=== PATIENT | female | born 1975 | race Caucasian/White ===

== ENCOUNTER 2019-08-02 11:29 | Emergency (ER) | payer BC ==
[~2019-08-02] VITALS: Ht 170.2 cm; Wt 68.0 kg
[2019-08-02] MEDS ORDERED: MELOXICAM15 MG PO (11:43)
[2019-08-02] MEDS ORDERED: NORCO 7.5-3251 EACH PO (12:52)
== END 2019-08-02 13:05 | disposition home or self-care (01) ==
LOC: ED 11:29
DX: S30.0XXA Contusion of lower back and pelvis, initial encounter (principal); K21.9 Gastro-esophageal reflux disease without esophagitis; Z79.899 Other long term (current) drug therapy; Z88.8 Allergy status to other drugs, medicaments and biological substances; W18.30XA Fall on same level, unspecified, initial encounter
CPT/HCPCS: 72170; 99283-25; A9270

== ENCOUNTER 2019-12-26 07:55 | Day surgery (SDC) | payer BC, OTHER ==
[~2019-12-26] VITALS: Ht 170.2 cm; Wt 68.0 kg
[~2019-12-26 07:55] MED LIST: ADDERALL 5 MG TA5 MG PO; CALCIUM MAGNES1 EAC2 PO; ESOMEPRAZOLE MA40 MG PO; ESTRACE0.5 MG PO; K-TAB ER20 MEQ PO; MELOXICAM15 MG PO; NORCO 7.5-3251 EACH PO; OMEPRAZOLE20 MG PO; PROTONIX20 MG PO; VITAMIN C1000 MG PO
--- NOTE | 2019-12-26 10:27 | NUR ---
12/26/19 1027 Sheets,Dixie 1018 PT ARRIVED TO PACU ON 10L VIA MASK, PT REPORTS MINIMAL PAIN /. VSS. 4 LAP SITES TO ABD. RESP EVEN AND UNLABORED. 1024 O2 REMOVED, O2 SAT 100%.
[2019-12-26] MEDS ORDERED: TYLENOL EXTRA500 MG PO (10:39)
[2019-12-26] MEDS ORDERED: PERCOCET 7.5-31 EACH PO (10:40)
[2019-12-26] MEDS ORDERED: MOTRIN IB200 M1 PO (10:40)
--- NOTE | 2019-12-26 11:55 | NUR ---
DENIES NAUSEA AFTER EATING CRACKERS OR JELLO. MEDICATED FOR MILD PAIN PER EMAR. STEADY ON FEET WITH ONE PERSON STAND BY ASSIST. AMBULATES TO BR FOR UNMEASURED URINE. REVIEWED DISCHARGE INSTRUCTIONS WITH PT AND SPOUSE AT BEDSIDE. RX AND DISCHARGE INSTRUCTIONS GIVEN TO PT.
--- NOTE | 2019-12-27 16:02 | OR ---
[facility] [address], [place] [address] Signed DATE OF OPERATION: 12/26/2019 SURGEON: Harsh Marr MD PREOPERATIVE DIAGNOSIS: Chronic acalculous cholecystitis. POSTOPERATIVE DIAGNOSIS: Chronic acalculous cholecystitis. PROCEDURE: Laparoscopic cholecystectomy with intraoperative cholangiogram. ANESTHESIA: General endotracheal; Harsh Steele CRNA and local 20 mL of 0.25% Marcaine with epinephrine. 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 She has had chronic recurrent right upper abdominal pain as well as radiation of pain to the right subscapular area. Gallbladder ultrasound was performed showing no sign of stones and she had a CCK HIDA test which was performed showing an ejection fraction of 70% with marked reproduction of her symptoms include right subcostal and right subscapular pain. She is considered likely to have acalculous cholecystitis on that basis. She is admitted at this time to undergo cholecystectomy preferred by laparoscopic approach. She understands the risks of bleeding, infection, bile duct injury, need for open procedure and most importantly failure to cure her symptoms. She understands the risks and she wished to proceed. FINDINGS: The gallbladder clinically appeared chronically inflamed. Cholangiogram was normal. The liver was entirely normal. The gallbladder once excised showed no sign of stones in the gallbladder, but chronic inflammatory change in the mucosa. There were no other findings of concern. DESCRIPTION OF PROCEDURE: The patient was brought to the operating room, given a general endotracheal anesthetic. Preoperative antibiotic Ancef was given and sequential compression device stockings used. Heparin was subcutaneously administered. The abdomen was prepared with a chlorhexidine solution after satisfactory anesthesia and draped sterilely. An Electronically Signed By: HARSH MARR MD 12/27/19 1602 PATIENT NAME: JOSSIE DOMINGUEZ OPERATIVE REPORT DATE OF : 71 REPORT #: [id number] PHYSICIAN: HARSH MARR MD PCP: GRANT BRAGA REPORT IS CONFIDENTIAL AND NOT TO BE RELEASED WITHOUT AUTHORIZATION [facility] [address], [place] [address] Signed infraumbilical incision was made using an open Arley cannula technique, pneumoperitoneum was achieved to a level of 14 mmHg of carbon dioxide gas. Intraabdominal inspection showed no sign of ascites or carcinomatosis. The liver appeared normal. The gallbladder was partially seen and appeared to be chronically inflamed. There was no sign of acute inflammation. Inspection in the lower abdomen showed no visualization of pelvic organs. The right colon appeared normal. Three additional trocars were placed in usual configuration in the subxiphoid right midclavicular, and right anterior axillary line. The gallbladder was elevated cephalad and retracted laterally. Due to her thin body habitus, good visualization of the structures were noted. Using meticulous care and dissection using a hook cautery device, the cystic duct was dissected free identifying well the anatomy. The critical view of safety was maintained. A clip was applied across gallbladder cystic duct junction and a transverse choledochotomy made in the cystic duct. Retrograde milking of the duct showed clear bile. Using the Rowe type cholangiocatheter system, intraoperative cholangiography was undertaken showing free flow of contrast in the biliary tree with prompt emptying into the duodenum. There was a small amount of spillage at the insertion site of the cystic duct, but the proximal biliary tree was normal otherwise. The catheter was removed. The cystic duct was triply clipped and divided. The gallbladder dissected free in a retrograde fashion using electrocautery. The gallbladder was extracted through the infraumbilical port site, opened on the back table and found to have chronic inflammatory change with no sign of stone. Irrigation was undertaken. The subhepatic space there was no sign of bile leak, bleeding or other problems. Excess irrigation fluid was suctioned free. The trocars removed under direct visualization showing no bleeding. The infraumbilical fascial incision was reapproximated with interrupted 0 Vicryl suture had a running 0 PDS suture as well. A 20 mL of 0.25% Marcaine with epinephrine was injected locally in the incision sites. The skin was closed with interrupted 3-0 Vicryl. Steri-Strips were applied. The patient allowed to emerge from anesthesia, ultimately extubated and transferred to recovery room in good condition having suffered no complications. Sponge, needle, and instrument counts reported as correct x3. Harsh Marr MD JM/MODL /[id number] Electronically Signed By: HARSH MARR MD 12/27/19 1602 PATIENT NAME: JOSSIE DOMINGUZE OPERATIVE REPORT DATE OF : 71 REPORT #: [id number] PHYSICIAN: HARSH MARR MD PCP: GRANT BRAGA REPORT IS CONFIDENTIAL AND NOT TO BE RELEASED WITHOUT AUTHORIZATION [address] [address] Signed cc: EDWARD Meyer Copies: GRANT BRAGA ~ Electronically Signed By: HARSH MARR MD 12/27/19 1602 PATIENT NAME: ALBERTOJOSSIE ROBERT OPERATIVE REPORT DATE OF : 71 REPORT #: [id number] PHYSICIAN: HARSH MARR MD PCP: GRANT BRAGA REPORT IS CONFIDENTIAL AND NOT TO BE RELEASED WITHOUT AUTHORIZATION
--- NOTE | 2019-12-28 17:49 | PATH ---
[facility] [address] [place], [place] [address] Signed SPECIMEN(S): A GALLBLADDER SPECIMEN SOURCE: A. GALLBLADDER CLINICAL HISTORY: Chronic cholecystitis. FINAL PATHOLOGIC DIAGNOSIS: Gallbladder, cholecystectomy: - Chronic cholecystitis. BRP:cml:C2NR MICROSCOPIC EXAMINATION: Histologic sections of all submitted blocks are examined by light microscopy. These findings, together with the gross examination, support the pathologic diagnosis. GROSS DESCRIPTION: The specimen, labeled "KS," is received in formalin and consists of Specimen: Previously opened gallbladder. Dimensions: 6.1 x 3.6 x 1.0 cm. Serosa: Green-tracy and smooth. Cystic Duct: Unobstructed. Calculi: Not grossly identified. Mucosa: Green-tracy and velvety. Wall thickness: 0.4 cm. Lymph node: No pericystic lymph nodes are grossly identified. Additional: None. Joist Setter sections are submitted in cassette (A1). AC (under the direct supervision of a pathologist) The Gross Description was prepared using a voice recognition system. The report was reviewed for accuracy; however, sound-alike word errors, addition and/or deletions may occur. If there is any question about this report, please contact Client Services. PERFORMING LABORATORY: The technical component was performed by [employer], [address] [place] [id number] (Car Dumper: Nicolasa Kidd MD; CLIA# [id number]). Professional interpretation was performed by [facility], [facility], [address] [facility], PATIENT NAME: JOSSIE DOMINGUEZ PATHOLOGY DATE OF : 71 REPORT #: [id number] PHYSICIAN: [facility] PCP: GRANT BRAGA REPORT IS CONFIDENTIAL AND NOT TO BE RELEASED WITHOUT AUTHORIZATION [facility] [address] [place] [address] Signed [place] [address] (CLIA# [id number]). Diagnostician: Huang Lewis MD Pathologist Electronically Signed 12/28/2019 Copies: ~ PATIENT NAME: JOSSIE DOMINGUEZ PATHOLOGY DATE OF : 71 REPORT #: [id number] PHYSICIAN: [facility] PCP: GRANT BRAGA REPORT IS CONFIDENTIAL AND NOT TO BE RELEASED WITHOUT AUTHORIZATION
== END 2019-12-26 12:08 | disposition home or self-care (01) ==
LOC: DS 07:55
PROVIDERS: ATTEND Surgery
PROC: BF13YZZ Fluoroscopy of Gallbladder and Bile Ducts using Other Contrast (ICD-10-PCS; 2019-12-26)
PROC: 0FT44ZZ Resection of Gallbladder, Percutaneous Endoscopic Approach (ICD-10-PCS; principal; 2019-12-26 08:45)
DX: K81.1 Chronic cholecystitis (principal); K21.00 Gastro-esophageal reflux disease with esophagitis, without bleeding; Z79.899 Other long term (current) drug therapy; Z97.5 Presence of (intrauterine) contraceptive device
CPT/HCPCS: 00790; 74300; A9270; J0330; J0690; J1100; J1644; J1885; J2250; J2270; J2405; J2704; J2765; J3010; J7121; Q9967

== ENCOUNTER 2020-02-27 05:40 | Day surgery (SDC) | payer BC ==
[~2020-02-27] VITALS: Ht 170.2 cm; Wt 68.2 kg
[~2020-02-27 05:40] MED LIST changes: -K-TAB ER20 MEQ PO; +MOTRIN IB200 M1 PO; +PERCOCET 7.5-31 EACH PO; +POTASSIUM GLUCO99 MG PO; +TYLENOL EXTRA500 MG PO
--- NOTE | 2020-02-27 09:55 | NUR ---
02/27/20 0955 Dixie Pelayo 0949 PT ARRIVED TO PACU ON RA AND DRWOSY. PT WAKES AND DENIES PAIN. SPINAL T-11. VSS.
--- NOTE | 2020-02-27 10:45 | NUR ---
PT ARRIVED FROM PACU VIA STRETCHER THIS AM. PT HAS A PIERRE AND VAGINAL PACKING WITH NO NOTED DRAINAGE AT THIS TIME. PT STATES THAT SHE IS REGAINING FEELING IN HER LEGS BUT SHE STATES THAT HER BUM IS STILL NUMB. PT STATES THAT SHE IS ITCHY BUT NO NEED FOR MEDS AT THIS TIME, PT ALSO DENIES NEED FOR PAIN MEDS OR NAUSEA MEDS AT THIS TIME
--- NOTE | 2020-02-27 11:50 | NUR ---
THIS RN IN PTS ROOM TO DO PTS #2 POST OPP CHECK. PT STATES SHE FEELS DROWSY BUT WAKES EASILY TO NAME. PT STATES THAT HER PAIN IS 4/10 BUT DENIES THE NEED FOR MORPHINE IV AT THIS TIME, PT STATES THAT SHE HAS NO NAUSEA, NO DRAINAGE NOTED. PT STATES THAT SHE CAN FEEL THE PACKING AND THE CATHETER AT THIS TIME, NUMBNESS IS RESOLVING.
--- NOTE | 2020-02-27 12:15 | NUR ---
MED REC COMPLETE
--- NOTE | 2020-02-27 12:31 | NUR ---
THIS RN IN PTS ROOM PER PT REQUEST TO PROVIDE PT WITH 2MG OF MORPHINE. THIS RN ALSO PROVIDED PT WITH A HEAT PACK FOR COMFORT. PT STATES THAT THE PAIN MEDS ARE WORKING AND SHE IS FEELING BETTER. NO DRAINAGE NOTED FROM PAKING AREA.
--- NOTE | 2020-02-27 13:23 | NUR ---
PATIENT SITTING UP IN BED. IN ROOM. VITAL SIGNS DONE BY RN. I&O DONE. CALL LIGHT WITHIN REACH. NO OTHER NEEDS AT THIS TIME
--- NOTE | 2020-02-27 13:32 | NUR ---
PT ALERT, ORIENTED AND SUPPORTED BY HER DANIELE. PT IS ON M/S FOR OBSER- VATION FOLLOWING SURGERY. STAYED A MOMENT, GAVE Lamar PAYNEPOST AND HAD PRAYER WITH PT. WILL CONTINUE TO FOLLOW NEEDED
--- NOTE | 2020-02-27 13:45 | NUR ---
THIS RN IN PTS ROOM TO DO LAST POST OPP CHECK. PT STATED THAT SHE HAD SOME SCANT TO SMALL AMOUNT OF VAGINAL BLEEDING THAT SHE WAS ABLE TO WIPE UP. THIS RN PROVIDED PT WITH A ROSEANN PAD TO ALLOW FOR EASE TO KNOW OF AMOUNT OF VAGINAL DISCHARGE
--- NOTE | 2020-02-27 16:02 | NUR ---
CALL LIGHT ANSWERED. PATIENT ASKS FOR ICE WATER AND ICE PACK. ICE WATER AND ICE PACK PROVIDED. PATIENT ASKS FOR PAIN MEDICATION. RN NOTIFIED. CALL LIGHT WITHIN REACH. NO OTHER NEEDS AT THIS TIME
--- NOTE | 2020-02-27 16:15 | NUR ---
this rn called kristin knutson to ask if pt was okay to take percocet. kristin knutson stated pt was okay to take the med
--- NOTE | 2020-02-27 17:45 | NUR ---
PATIENT SITTING UP IN BED. IN ROOM. VITAL SIGNS AND I&O DONE. CALL LIGHT WITHIN REACH. NO OTHER NEEDS AT THIS TIME
--- NOTE | 2020-02-27 18:11 | NUR ---
THIS RN IN PTS ROOM TO CHECK ON PT. PT STATED THAT THE MOTRIN AND PERCOCET ARE WORKING WELL AND THE ROSEANN PAD ONLY HAS A SCANT AMOUNT OF VAGINAL DISCHARGE IN IT
--- NOTE | 2020-02-27 19:30 | NUR ---
SHIFT REPORT RECEIVED FROM NIKKI GU. PT RESTING IN BED, DENIES NEED FOR PAIN MANAGEMENT AT THIS TIME. IV FLUIDS INFUSING PER ORDER. GABBY WNL. NO OTHER NEEDS AT THIS TIME. CALL LIGHT IN REACH.
--- NOTE | 2020-02-27 20:49 | NUR ---
ASSESSMENT, VS AND I&O COMPLETED. IV WNL, CDI, FLUSHED WELL. GCS 15, A&O X4. LUNGS CLEAR, HEART TOMES REGULAR. ABD SOFT, NONTENDER, PT STATES NORMAL. BOWEL TONES ACTIVE. SCANT BLOOD ON PAD, PACKING IN PLACE. PIERRE WNL. CMS INTACT. PT HAS A "PRESSURE" PAIN FROM PACKING OF 4/10, DENIES NEED FOR PAIN INTERVENTION AT THIS TIME. CALL LIGHT IN REACH.
--- NOTE | 2020-02-28 | NUR ---
PT RESTING IN BED, EYES CLOSED. RR EVEN, UNLABORED. CALL LIGHT IN REACH.
--- NOTE | 2020-02-28 02:00 | NUR ---
PT COMPLAINS OF 7/10 VAGINAL PAIN. PRN PAIN MEDS PROVIDED. ASSESSMENT COMPLETED. SCANT BRIGHT RED BLOOD ON PAD. ABD SOFT, NONTENDER, PT STATES NORMAL. IV WNL. PIERRE WNL. CMS INTACT. ICE PACK, VS AND I&O PROVIDED BY TROY MAGANA. NO OTHER NEEDS AT THIS TIME. CALL LIGHT IN REACH.
--- NOTE | 2020-02-28 04:00 | NUR ---
PT RESTING IN BED, EYES CLOSED. RR EVEN, UNLABORED. CALL LIGHT IN REACH.
--- NOTE | 2020-02-28 06:20 | NUR ---
PIERRE AND PACKING REMOVED WITHIN LIMITS. PT UP TO VOID. SMALL, UNMEASURED VOID WITH BRIGHT RED BLOOD. SMALL AMOUNT OF BLOOD. AREA CLEANED, ICE PACK PROVIDED. PRN PAIN MED PROVIDED FOR 5/10 VAGINAL PAIN. NO OTHER NEEDS AT THIS TIME. CALL LIGHT IN REACH.
--- NOTE | 2020-02-28 06:34 | NUR ---
PT SLEPT WELL LAST NIGHT. PAIN MANAGED WITH PRN PAIN MEDS. TOLERATED DIET WELL, NO NAUSEA. UOS, VSS. PIERRE AND PACKING PULLED WNL, SMALL AMOUNT OF BRIGHT RED BLOOD. PT INDEPENDENT IN ROOM AT THIS TIME. PT GOT UP TO USE BR, SMALL VOID, TOLERATED WELL. IV WNL, FLUSHED WELL. ABD SOFT, NONTENDER, PT DENIES BLOATING, BOWEL TONES ACTIVE.
--- NOTE | 2020-02-28 08:00 | NUR ---
pt awake in bed, up eating breakfast. Simethicone given for gas pains, rates pain 4/10 at rest. Was given percocet prior to shift change. Voiding adequately. No further needs call light in reach.
--- NOTE | 2020-02-28 08:50 | NUR ---
Spoke with Anna. She plans on dc today. Spouse is off work and will be staying home with her. She denies any needs for dc. She has been walking in room and voided after catheter was removed. Plans on dc when Dr. morgan.
--- NOTE | 2020-02-28 09:31 | NUR ---
PATIENT AWAKE IN BED, VITALS AND I&OS CHARTED. ICE PACK PROVIDED, PER PATIENT REQUEST. CALL LIGHT IN REACH
--- NOTE | 2020-02-28 11:17 | NUR ---
CALLED FOR CLARIFICATION ON HOME MEDCIATION MEDICATION RECONCILIATION FOR DISCHARGE.
[2020-02-28] MEDS ORDERED: PERCOCET 5-3251 EACH PO (11:37)
[2020-02-28] MEDS ORDERED: IBUPROFEN800 MG PO (11:38)
--- NOTE | 2020-02-28 13:42 | OR ---
[address] [address] Signed DATE OF OPERATION: 02/27/2020 SURGEON: Isaak Cross MD PREOPERATIVE DIAGNOSIS: Uterovaginal prolapse, incomplete. POSTOPERATIVE DIAGNOSIS: Uterovaginal prolapse, incomplete. PROCEDURE: Vaginal hysterectomy with anterior-posterior repair and cystoscopy. ASSISTANTS: 1. Jorge Cortez DO. 2. Nette Dc DO. ANESTHESIA: Spinal with IV sedation. ESTIMATED BLOOD LOSS: 100 mL. SPECIMEN: Uterus. DRAINS: Martinez to bladder. PACKING: Premarin soaked gauze in vagina. FINDINGS: Slightly wide introitus with thin perineal body with grade 2 cystocele, grade 2 rectocele with thin rectovaginal septum. 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 DESCRIPTION: The patient was brought to the operating room and placed in supine position. After adequate general Electronically Signed By: ISAAK CROSS MD 02/28/20 1342 PATIENT NAME: JOSSIE DOMINGUEZ OPERATIVE REPORT DATE OF : 71 REPORT #: [id number] PHYSICIAN: ISAAK CROSS MD PCP: GRANT BRAGA REPORT IS CONFIDENTIAL AND NOT TO BE RELEASED WITHOUT AUTHORIZATION [address] [address] Signed anesthesia was obtained, she was placed in dorsal lithotomy position, prepped and draped in the usual sterile fashion. Martinez catheter was placed in the bladder. A weighted speculum was placed in the vagina and the posterior lip of the cervix was grasped with an Allis clamp. The cervix was moved back and forth to identify the reflection of the posterior vagina off the cervix and a posterior colpotomy was made using curved scissors. Finger was placed in the posterior cul-de-sac to make sure there was no bowell or or adhesions present. [place] neck speculum replaced the weighted speculum and placed in the posterior cul-de-sac. The uterosacral ligaments were clamped on each side using curved Ashok clamps, and these pedicles were cut with scissors and stick-tied with 0-Vicryl suture. The scalp was then used to circumscribe the vaginal mucosa just around the cervix from one pedicle to the other anteriorly, and the anterior vaginal mucosa bluntly pushed back. The anterior peritoneum was not identified at this point, so additional clamp was placed on each side against the cervix using curved Ashok clamp. Each pedicle was clamped, cut with scissors and then stick-tied with 0-Vicryl suture. The anterior cul-de-sac was then pushed back further. The anterior peritoneum identified and nicked with curved scissors and a finger placed into the anterior cul-de-sac to make sure there were no bowel or pelvic structures present. A [place] was placed through the anterior cul-de-sac. The remaining pedicles incorporated the anterior and posterior peritoneum. Curved Ashok clamps were clamped on either side up the side of the uterus and against the uterus clamping with curved Ashok cutting with scissors and stick tying with 0-Vicryl suture. Final upper pedicles were clamped on either side using curved Ashok clamp incorporating the round ligament and the fallopian tube. These pedicles were clamped and cut, removing the uterus and cervix. Each upper pedicle was free tied and stick-tied with 0-Vicryl suture. Both suture lines were carefully examined. A small amount of bleeding was noted in the midportion. This was controlled with extra [id number] stitch of 0-Vicryl suture. When good hemostasis was obtained, the anterior and posterior peritoneum was identified and a pursestring stitch of 2-0 Vicryl suture used to close the peritoneum with a finger placed in the closure as it was closed to make sure there was no pelvic structures caught within the peritoneal closure. The vaginal mucosa was then closed using a running locking stitch of 0-Vicryl suture starting at one side and across to the other side. The upper and lower pedicle sutures were then cut. Good hemostasis was noted. The anterior vaginal mucosa was grasped with two Allis clamps in the midline, one at the urethralvesical junction, the other one at the distal end of the cystocele. A scalpel was used to cut the vaginal mucosa along the midline between the two Allis clamps and Metzenbaum scissors used to undermine the vaginal mucosa and separate the paravesical tissue from the vaginal mucosa on each side. When the cystocele was isolated, a pursestring stitch of Electronically Signed By: ISAAK CROSS MD 02/28/20 1342 PATIENT NAME: JOSSIE DOMINGUEZ OPERATIVE REPORT DATE OF : 71 REPORT #: [id number] PHYSICIAN: ISAAK CROSS MD PCP: GRANT BRAGA REPORT IS CONFIDENTIAL AND NOT TO BE RELEASED WITHOUT AUTHORIZATION [address] [address] Signed 2-0 Vicryl suture was used to close and elevate the cystocele. The vaginal mucosa was then trimmed on either side and a running locking stitch of 3-0 Vicryl suture used to close the vaginal mucosa. This did seem to elevate the bladder and resolve the cystocele. Cystoscopy was then performed. The Martinez catheter was removed from the bladder and a 70-degree cystoscope placed in the bladder under direct visualization. Sterile water was used as distending medium. The entire bladder was inspected. No defects and no puckering were noted. Both ureteral orifices were seen and showed good jets of urine from fluorescein dye that had been previously injected by IV. There were no holes or defects noted. The cystoscope was removed. The bladder drained and the Martinez catheter placed back in the bladder. The rectocele repair was then started by digital rectal exam identifying the thin rectovaginal tissue and the thin perineal body. The vaginal mucosa just at the upper edge of the rectocele was grasped with a curved Miryea clamp in the midline, and then a scalpel used to remove a triangular piece of perineal skin. Allis clamps were used to grasp both sides of the perineal opening posteriorly and the incision made between the Allis clamps and then down to the midline approximately nursing home towards the rectum. The perineal skin was removed using the scalpel. Metzenbaum scissors were then used to undermine the vaginal mucosa and opened the vaginal mucosa along the midline. As this was done, Allis clamps were used to grasp the vaginal mucosa on either side. After reaching the upper Imreya clamp, the vaginal mucosa on either side was bluntly and sharply taken down with Metzenbaum scissors and gauze after the rectocele was isolated. Horizontal mattress stitches of 0-Vicryl suture were used in a horizontal mattress stitch fashion to close and strengthen the thin rectovaginal tissue, this was started distally and the stitches brought out to the vaginal opening. A finger dissection was then used to check the rectum and no stitches were noted to be in the rectum and the rectocele seemed well fixed. The vaginal mucosa was then trimmed and a running locking stitch of 3-0 Vicryl suture used to close the vaginal mucosa nursing home to the opening. FloSeal was inserted into the space between the rectovaginal tissue and the vagina to help with hemostasis. The vagina was closed the rest away to the opening and then interrupted stitches of 0-Vicryl suture were used to reinforce the perineal body. The 3-0 Vicryl suture was then continued down the perineal body, this was a subcutaneous stitch and then after reaching the apex, the perineal skin was closed in a subcuticular fashion back up to the vaginal opening. There was small amount of bleeding along this edge and was controlled with two extra sljwtk-ov-djeaa stitches of 3-0 Vicryl suture and good hemostasis was obtained. Sponge stick was placed in the vagina and good hemostasis noted there. The vaginal opening had good length and good two fingerbreadth with better support anterior and posteriorly, and the cuff also seemed elevated, so at this time the vagina was packed with Premarin soaked gauze. The Martinez catheter left in place. The Electronically Signed By: ISAAK CROSS MD 02/28/20 1342 PATIENT NAME: JOSSIE DOMINGUEZ OPERATIVE REPORT DATE OF : 71 REPORT #: [id number] PHYSICIAN: ISAAK CROSS MD PCP: GRANT BRAGA REPORT IS CONFIDENTIAL AND NOT TO BE RELEASED WITHOUT AUTHORIZATION [facility] [address] [place] [address] Signed patient tolerated the procedure well, went to the recovery room in good condition. The sponge, needle, and instrument count correct at the end of the procedure. Isaak Cross MD MJB/MODL /[id number] cc: EDWARD Meyer Copies: GRANT BRAGA ~ Electronically Signed By: ISAAK CROSS MD 02/28/20 1342 PATIENT NAME: JOSSIE DOMINGUEZ ROBERT OPERATIVE REPORT DATE OF : 71 REPORT #: [id number] PHYSICIAN: ISAAK CROSS MD PCP: GRANT BRAGA REPORT IS CONFIDENTIAL AND NOT TO BE RELEASED WITHOUT AUTHORIZATION
--- NOTE | 2020-02-28 13:48 | NUR ---
PT ALERT, ORIENTED AND WAITING FOR DC. PT SAID SHE SLEPT OK LAST NIGHT. PAIN BEGINNING TO INCREASE, SAID RN WAS GETTING MEDS. ENCOURAGED PT TO BE SURE AND FOLLOW INSTRUCTIONS FOR DC FOR LEVEL OF ACTIVITY. PT ACKNOWLEDGED. EXTENDED A BLESSING, WILL FOLLOW
--- NOTE | 2020-02-29 14:01 | PATH ---
[facility] [address], [place] [address] Signed SPECIMEN(S): A CERVIX AND UTERUS SPECIMEN SOURCE: A. CERVIX AND UTERUS CLINICAL HISTORY: Uterovaginal prolapse. FINAL PATHOLOGIC DIAGNOSIS: Cervix and uterus, hysterectomy: - Cervix: - Reactive squamous epithelium and endocervix, with increased chronic inflammation and hemorrhage. - Negative for malignancy. - Endomyometrium: - Inactive endometrial glands with atrophy and tubal metaplasia. - Negative for hyperplasia and atypia. DDF:cml:C2NR MICROSCOPIC EXAMINATION: Histologic sections of all submitted blocks are examined by light microscopy. These findings, together with the gross examination, support the pathologic diagnosis. GROSS DESCRIPTION: The specimen, labeled "KS," and designated on the requisition "cervix and uterus," is received in formalin and consists of a 104 g, 8.5 x 5.2 x 3.7 cm uterus with attached cervix. The uterine serosa is tracy-pink, smooth, glistening. The orientation of the uterus is grossly indeterminate. Protruding from one lateral surfaces of the lower uterine segment is a 3.5 cm long, 3.0 cm diameter vessel that grossly appears to have a pin lumen. The ectocervical tissue is tracy, smooth to finely wrinkled, and occupies a 6.4 x 4.5 cm area. The external os is oval, patent, and 3.0 cm in diameter. The internal os is patent and the cervical stroma is grossly unremarkable. The triangular endometrial cavity measures 3.7 x 2.7 cm and contains a white, synthetic, 3.7 cm long, up to 0.3 cm in diameter, T-shaped device consistent with an IUD. The tracy endometrium is up to 0.2 cm thick and without a discrete mass/lesion. The tracy, rubbery myometrium has ill-defined, focal areas of slight PATIENT NAME: JOSSIE DOMINGUEZ PATHOLOGY DATE OF : 71 REPORT #: [id number] PHYSICIAN: [facility] PCP: GRANT BRAGA REPORT IS CONFIDENTIAL AND NOT TO BE RELEASED WITHOUT AUTHORIZATION [facility] [address], [place] [address] Signed trabeculation, but is otherwise grossly unremarkable. [employer] sections are submitted as follows: (A1-A2) Cervix (A3-A4) Uterine wall (A3 contains a section of the lateral protruding vessel) AI (under the direct supervision of a pathologist) The Gross Description was prepared using a voice recognition system. The report was reviewed for accuracy; however, sound-alike word errors, addition and/or deletions may occur. If there is any question about this report, please contact Client Services. PERFORMING LABORATORY: The technical component was performed by [facility], [address] [place] [id number] (Municipal Services Manager: Nicolasa Kidd MD; CLIA# [id number]). Professional interpretation was performed by [facility], [address] [address] (CLIA# [id number]). Diagnostician: Dimitri Lew DO Pathologist Electronically Signed 02/29/2020 Copies: ~ PATIENT NAME: JOSSIE DOMINGUEZ PATHOLOGY DATE OF : 71 REPORT #: [id number] PHYSICIAN: [facility] PCP: GRANT BRAGA REPORT IS CONFIDENTIAL AND NOT TO BE RELEASED WITHOUT AUTHORIZATION
== END 2020-02-28 12:25 | disposition home or self-care (01) ==
LOC: DS 05:40 → OPS 05:40 → DS 06:45 → MS 10:42 → OPS 02-28 12:25
PROVIDERS: ATTEND General Practice
PROC: 0UT97ZZ Resection of Uterus, Via Natural or Artificial Opening (ICD-10-PCS; principal; 2020-02-28)
PROC: 0JQC0ZZ Repair Pelvic Region Subcutaneous Tissue and Fascia, Open Approach (ICD-10-PCS; 2020-02-28)
PROC: 0JQC0ZZ Repair Pelvic Region Subcutaneous Tissue and Fascia, Open Approach (ICD-10-PCS; 2020-02-28)
DX: N81.2 Incomplete uterovaginal prolapse (principal); K21.9 Gastro-esophageal reflux disease without esophagitis; M19.019 Primary osteoarthritis, unspecified shoulder; Z97.5 Presence of (intrauterine) contraceptive device; Z79.899 Other long term (current) drug therapy; Z79.1 Long term (current) use of non-steroidal anti-inflammatories (NSAID); Z88.8 Allergy status to other drugs, medicaments and biological substances; Z20.828 Contact with and (suspected) exposure to other viral communicable diseases
CPT/HCPCS: 00840; J0690; J1100; J1644; J1885; J2001; J2250; J2270; J2274; J2704; J3010; J3475; J7121